=== PATIENT | male | born 2000 ===

== ENCOUNTER 2024-01-20 10:03 | Observation (INO) ==
[2024-01-20] MEDS: Lactated Ringers 1000 ml BAG 1,000 ML IV ONE (12:10)
[2024-01-20 12:17] LABS: ABS Lymphocytes 1.6 10^3/uL (1.0-4.8); ABS Monocytes 1.1 10^3/uL (0.0-1.1); ABS Neutrophils 2.9 10^3/uL (1.5-7.6); ABS Nucleated RBC 0.01 10^3/ul; Eosinophil % 0.4 %; Hematocrit 44.9 % (38-53); Hemoglobin 15.3 g/dL (13.2-16.3); Lymphocyte % 27.9 %; Mean Corpuscular Hemoglobin 29.4 pg (27-33); Mean Corpuscular Volume 86.5 fL (80-97); Mean Platelet Volume 7.1 fL (7.5-11.2); Nucleated Red Blood Cells % 0.2 %/100WBC (0.0-0.8); Platelet Count 234 10^3/uL (150-450); Red Blood Count 5.19 10^6/uL (4.06-5.63); Red Cell Distribution Width 13.2 % (12-17); White Blood Count 5.6 10^3/uL (3.6-10.2)
[2024-01-20 12:56] LABS: Albumin 4.5 g/dL (3.2-5.2); Albumin/Globulin Ratio 1.5 (1-3); C Reactive Protein 12.76 mg/L (<8.01); Calcium 9.4 mg/dL (8.6-10.3); Creatinine, Serum 0.81 mg/dL (0.67-1.17); Globulin 3.1 g/dL (2-4); Magnesium 1.7 mg/dL (1.9-2.7); Total Bilirubin 0.8 mg/dL (0.2-1.0); Total Protein 7.6 g/dL (6.4-8.9); eGFR CKD-EPI 126.3 (>60)
[2024-01-20] MEDS: Ondansetron 4 mg VIAL 2 MG/ML 2 ml VIAL IV ONE (13:12)
[2024-01-20] MEDS ORDERED: Ondansetron 4 mg VIAL 2 MG/ML 2 ml VIAL IV PRN (18:51)
[2024-01-20] MEDS: Magnesium Sulfate 2 gm BAG 2 GM/50 ML BAG IVPB ONE (19:59)
[2024-01-20] MEDS: Lactated Ringers 1000 ml BAG 1,000 ML IV SCH (19:59)
[2024-01-20] MEDS: Magnesium Sulfate IV 1GM/100ML 1 GM/100 ML BAG IV ONE (21:10)
[2024-01-21] MEDS: Iohexol 350 (CONTRAST) 500 ML MDV IV ONE (03:14)
[2024-01-21 08:39] LABS: ABS Eosinophils 0.1 10^3/uL (0.0-0.5); ABS Lymphocytes 2.2 10^3/uL (1.0-4.8); ABS Monocytes 0.8 10^3/uL (0.0-1.1); ABS Neutrophils 1.4 10^3/uL (1.5-7.6); Hemoglobin 14.6 g/dL (13.2-16.3); Mean Corpuscular Hemoglobin 29.9 pg (27-33); Mean Corpuscular Hgb Conc 34.8 g/dL (31-36); Mean Corpuscular Volume 85.8 fL (80-97); Mean Platelet Volume 6.9 fL (7.5-11.2); Nucleated Red Blood Cells % 0.1 %/100WBC (0.0-0.8); Platelet Count 226 10^3/uL (150-450); White Blood Count 4.4 10^3/uL (3.6-10.2)
[2024-01-21 09:32] LABS: Calcium 8.9 mg/dL (8.6-10.3); Creatinine, Serum 0.76 mg/dL (0.67-1.17); Magnesium 2.1 mg/dL (1.9-2.7); Potassium 3.9 mmol/L (3.5-5.0); eGFR CKD-EPI 128.7 (>60)
[2024-01-21 13:14] VITALS: BP 128/70
[2024-01-23 17:26] LABS: Adenovirus F40/41 Negative (Negative); Astrovirus Negative (Negative); Cryptosporidium species Negative (Negative); Cyclospora cayetanensis Negative (Negative); Entamoeba histolytica Negative (Negative); Enteroaggregative E.coli(EAEC) Negative (Negative); Enteropathogenic Ecoli(EPEC) Negative (Negative); Enterotoxigenic Ecoli(ETEC) Negative (Negative); Norovirus GI/GII Negative (Negative); Plesiomonas shigelloides Negative (Negative); Salmonella species Negative (Negative); Sapovirus Negative (Negative); Shiga toxin producing E. coli Negative (Negative); Shigella/Enteroinvasive E.coli Negative (Negative); Specimen Source STOOL; Vibrio cholerae Negative (Negative); Yersinia species Negative (Negative)
[2024-01-24 20:29] LABS: Calprotectin >3000 mcg/g
[2024-01-26 02:20] LABS: Infliximab, S 4.8 mcg/mL
== END 2024-01-21 18:02 | disposition home or self-care (01) ==
LOC: EDHOLD 10:03 → ED 10:03 → SUATTDRO 18:48 → EDHOLD 18:58 → MEDTELE 01-21 12:40
PROVIDERS: ADMIT Hospitalist; ATTEND Internal Medicine